=== PATIENT | female | born 1985 | race Caucasian/White ===

== ENCOUNTER 2017-01-30 20:17 | Emergency (ER) | payer OTHER ==
[2017-01-30 21:21] LABS: BASOPHIL 0.6 % (0-2); EOSINOPHIL 0.2 % (0-5); HCT 42.2 % (37.0-47.0); HGB 14.6 g/dl (12.5-16.0); LYMPHOCYTE 18.3 % (15-48); MCH 30.1 pg (25.0-31.0); MCHC 34.6 g/dL (32.0-36.0); MONOCYTE 10.8 % (0-12); NEUTROPHIL 70.1 % (41-80); PLT 282 K/uL (150-400); RBC 4.85 M/uL (4.20-5.40); RDW 13.2 % (11.5-14.0)
[2017-01-30 21:38] LABS: CREATININE 0.7 mg/dL (0.5-1.0)
== END 2017-01-30 22:20 | disposition home or self-care (01) ==
LOC: FER 20:17
PROVIDERS: Nurse Practitioner Family
DX: L02.415 Cutaneous abscess of right lower limb (principal); F17.210 Nicotine dependence, cigarettes, uncomplicated; Z88.2 Allergy status to sulfonamides
CPT/HCPCS: 36415; 80048; 85025; 86403; 87070; 87077; 87186; 87205